=== PATIENT | male | born 1960 | race Caucasian/White ===

== ENCOUNTER 2021-02-12 08:30 | Emergency (ER) | payer MEDICARE, OTHER ==
[2021-02-12 09:00] LABS: HEMOGLOBIN 16.4 gm/dl (14.0-17.5); RED BLOOD COUNT 4.77 M/UL (4.20-5.50); WHITE BLOOD COUNT 13.8 K/UL (4.5-11.0)
[2021-02-12 09:22] LABS: BUN/CREATININE RATIO 15 (0-10)
== END 2021-02-12 12:30 | disposition home or self-care (01) ==
LOC: ER1 08:30
PROVIDERS: Family Medicine
DX: S02.2XXA Fracture of nasal bones, initial encounter for closed fracture (principal); S01.81XA Laceration without foreign body of other part of head, initial encounter; H53.8 Other visual disturbances; Z95.0 Presence of cardiac pacemaker; F17.200 Nicotine dependence, unspecified, uncomplicated; Z88.0 Allergy status to penicillin; Y04.2XXA Assault by strike against or bumped into by another person, initial encounter
CPT/HCPCS: 12013; 70450; 70486; 80053; 82550; 82553; 83735; 83874; 84484; 85025; 99284; G0480